=== PATIENT | male | born 1985 | race Caucasian/White ===

== ENCOUNTER 2024-03-17 10:52 | Outpatient (CLI) | payer OTHER, SELFPAY ==
[2024-03-17 13:56] LABS: Alanine Aminotransferase 72 U/L (6-50); Albumin Level 4.9 g/dL (3.5-5.1); Alkaline Phosphatase 65 U/L (38-126); Anion Gap 10 mmol/L (4-12); Aspartate Amino Transferase 73 U/L (17-59); Bilirubin,Total 1.1 mg/dL (0.2-1.3); Blood Urea Nitrogen 8 mg/dL (9-20); Calcium 9.5 mg/dL (8.4-10.2); Carbon Dioxide 25 mmol/L (22-30); Chloride 104 mmol/L (98-107); Cholesterol 212 mg/dL (0-200); Estimated Glomerular Filt Rate > 60; Glucose 88 mg/dL (65-110); HDL Direct 36 mg/dL; Sodium 139 mmol/L (137-145); Triglycerides 238 mg/dL (<150)
[2024-03-17 14:09] LABS: LDL Cholesterol Direct 140 mg/dL
[2024-03-17 15:07] LABS: Hemoglobin A1C 4.8 % (<5.7)
== END 2024-03-17 10:53 | disposition home or self-care (01) ==
LOC: ANHGOSHLAB 10:53
PROVIDERS: PCP Family Medicine; Visit Provider Family Medicine
DX: Z13.220 Encounter for screening for lipoid disorders (principal); R73.9 Hyperglycemia, unspecified; Z13.228 Encounter for screening for other metabolic disorders
CPT/HCPCS: 36415; 80053; 80061; 83036